=== PATIENT | female | born 1960 | race Caucasian/White ===

== ENCOUNTER 2018-06-06 08:18 | Inpatient (IN) | payer OTHER ==
[2018-05-02 13:36] VITALS: BMI 29.0
[2018-05-11 13:00] VITALS: BMI 29.0
--- NOTE | 2018-05-11 13:02 | PAT Medication Instructions ---
Service Date May 11, 2018. Current Home Medication List Albuterol Hfa (Ventolin Hfa), 2-4 PUFFS INH Q6H PRN for Shortness of Breath Albuterol Sulf (Proventil 0.083% 2.5MG/3ML), 2.5 MG INH QID PRN for Shortness of Breath Calcium Carbonate-Cholecalcife (Calcium 500 +D3 500-600 mg-Unit), 1 TAB PO BID Fluticasone Furoate-Vilanterol (Breo Ellipta 200-25 Mcg/INH), QAM Gabapentin (Neurontin), 800 MG PO TID Ibuprofen-Famotidine (Duexis), 1 TAB PO TID Ipratropium-Albuterol (Combivent Respimat), 1 PUFFS INH QID Levothyroxine Sodium (Synthroid), 50 MCG PO QAM Loratadine (Claritin), 10 MG PO QAM Lorazepam (Ativan), 0.5 MG PO TID PRN for Anxiety Omeprazole (Prilosec), 20 MG PO QAM Medication Instructions For Your Scheduled Surgery - Check with surgeon for instructions: Ibuprofen-Famotidine (Duexis), 1 TAB PO TID - Hold the following medications the morning of surgery: Loratadine (Claritin), 10 MG PO QAM Calcium Carbonate-Cholecalcife (Calcium 500 +D3 500-600 mg-Unit), 1 TAB PO BID - Take the following medications the morning of surgery with a sip of water: Albuterol Hfa (Ventolin Hfa), 2-4 PUFFS INH Q6H PRN for Shortness of Breath (if needed) Albuterol Sulf (Proventil 0.083% 2.5MG/3ML), 2.5 MG INH QID PRN for Shortness of Breath (if needed) Fluticasone Furoate-Vilanterol (Breo Ellipta 200-25 Mcg/INH), QAM Gabapentin (Neurontin), 800 MG PO TID Levothyroxine Sodium (Synthroid), 50 MCG PO QAM Ipratropium-Albuterol (Combivent Respimat), 1 PUFFS INH QID Lorazepam (Ativan), 0.5 MG PO TID PRN for Anxiety (if needed) Omeprazole (Prilosec), 20 MG PO QAM - Take the following medications as scheduled the night before surgery: Calcium Carbonate-Cholecalcife (Calcium 500 +D3 500-600 mg-Unit), 1 TAB PO BID Lorazepam (Ativan), 0.5 MG PO TID PRN for Anxiety (if needed) Ipratropium-Albuterol (Combivent Respimat), 1 PUFFS INH QID Gabapentin (Neurontin), 800 MG PO TID Albuterol Hfa (Ventolin Hfa), 2-4 PUFFS INH Q6H PRN for Shortness of Breath (if needed) Albuterol Sulf (Proventil 0.083% 2.5MG/3ML), 2.5 MG INH QID PRN for Shortness of Breath (if needed) If you have any questions please call us at [phone] or [phone] or [phone]
[~2018-06-06] VITALS: Ht 162.6 cm; Wt 77.5 kg
[2018-06-06] VITALS (7 sets, daily range): BP systolic 122–154; BP diastolic 72–80; PULSE 45–69; TEMP 36.4–36.6; O2SAT 91–97; Ht 162.6 cm; Wt 77.5 kg
[~2018-06-06 08:18] MED LIST: ACETAMINOPHEN 500 MG TAB PO SCH; ALBINS/ INH; CALC-485 PO; CEFAZOLIN 1000MG IV PUSH 7.5 ML IV SCH; CeleBREX 200 MG CAP PO SCH; FLUT1INH7; GABA800T PO; GABAPENTIN 600 MG PO SCH; IBUP1TAB51 PO; IPRA1AER2 INH; LACTATED RINGER'S 1000ML IV SCH; LEVO50TA PO; LORA-741 PO; LORA10CA2 PO; PRLSR20 PO; VNTHFA/IN INH
[2018-06-06] MEDS ORDERED: ATROPINE SULFATE 0.1 MG/ML 5ML SYR IV PRN (08:30)
[2018-06-06] MEDS ORDERED: MEPERIDINE HCL 25 MG/ML CARP IV PRN (08:30)
[2018-06-06] MEDS ORDERED: EpHEDrine SULFATE INJ 50 MG/ML AMP IV PRN (08:30)
[2018-06-06] MEDS ORDERED: NALOXONE HCL 0.4 MG/1 ML VIAL/CARP IV PRN ×2 (08:30→13:30)
[2018-06-06] MEDS ORDERED: FLUMAZENIL 0.1 MG/1 ML 10 ML VIAL IV PRN (08:30)
[2018-06-06] MEDS ORDERED: ONDANSETRON INJ 2 MG/ML 2 ML VIAL IV PRN ×2 (08:30→13:30)
[2018-06-06] MEDS ORDERED: LABETALOL HCL IV 5 MG/ML 20ML IV PRN (08:30)
[2018-06-06] MEDS ORDERED: PHENYLEPHRINE 100MCG/ML 5ML SYR IV PRN (08:30)
[2018-06-06] MEDS ORDERED: FENTANYL CITRATE INJ 50 MCG/1 ML 2 ML VIAL ONE ×4 (10:59→12:54)
[2018-06-06] MEDS ORDERED: MIDAZOLAM HCL 1 MG/ML 2ML VIAL ONE (10:59)
--- NOTE | 2018-06-06 11:21 | History & Physical Bridge Note ---
H&P Re-Evaluation Bridge Note: I have examined the patient, reviewed the History & Physical and in the interval since the performance of the History & Physical I have noted the following changes of clinical significance: No changes noted
--- NOTE | 2018-06-06 11:23 | History and Physical ---
History & Physical Date Jun 06, 2018. Chief Complaint Back and leg pain History of Present Illness The patient is a 58 year old female with complaints of back and leg pain Past Medical/Surgical History Medical Problems: (1) Cervical stenosis of spinal canal Additional History Hepatic Disease: No Endocrine Disorder: No Kidney Disease: No Hypertension: No Heart Disease: No Bleeding Tendencies: No Infectious Diseases: No Allergies Coded Allergies: No Known Allergies (Unverified , 05/02/18) Home Medications Scheduled Calcium Carbonate-Cholecalcife (Calcium 500 +D3 500-600 mg-Unit), 1 TAB PO BID Fluticasone Furoate-Vilanterol (Breo Ellipta 200-25 Mcg/INH), QAM Gabapentin (Neurontin), 800 MG PO TID Ibuprofen-Famotidine (Duexis), 1 TAB PO TID Ipratropium-Albuterol (Combivent Respimat), 1 PUFFS INH QID Levothyroxine Sodium (Synthroid), 50 MCG PO QAM Loratadine (Claritin), 10 MG PO QAM Omeprazole (Prilosec), 20 MG PO QAM Scheduled PRN Albuterol Hfa (Ventolin Hfa), 2-4 PUFFS INH Q6H PRN for Shortness of Breath Albuterol Sulf (Proventil 0.083% 2.5MG/3ML), 2.5 MG INH QID PRN for Shortness of Breath Lorazepam (Ativan), 0.5 MG PO TID PRN for Anxiety Physical Examination Skin: warm/dry, no rash Eyes: normal inspection, EOMI, sclerae normal ENT: normal ENT inspection, pharynx normal Head: normocephalic, atraumatic Neck: supple, no adenopathy, trachea midline Respiratory/Chest: lungs clear, normal breath sounds, no respiratory distress Cardiovascular: regular rate, rhythm, no edema, no murmur Abdomen / GI: normal bowel sounds, non tender Back: normal inspection Extremities: normal inspection, normal range of motion Neurologic/Psych: no motor/sensory deficits, alert, normal reflexes, oriented x 3 Diagnosis Lumbar spinal stenosis with neurogenic claudication Plan of Treatment L2-L3 decompression and fusion
[2018-06-06] MEDS ORDERED: HYDROmorphone INJ 2 MG/ML SYR/VIAL ONE ×2 (11:38→12:55)
[2018-06-06] MEDS ORDERED: BUPIVACAINE/EPINEPHRINE 0.5% MPF 1:200,000 30 ML VIAL ONE (11:46)
[2018-06-06] MEDS ORDERED: BACITRACIN 50000 UNIT VIAL ONE (11:46)
[2018-06-06] MEDS ORDERED: BUPIVACAINE LIPOSOME 1/3% 266 MG/20 ML VIAL ONE (11:47)
[2018-06-06] MEDS ORDERED: SODIUM CHLORIDE 0.9% PF 50 ML VIAL ONE (11:51)
[2018-06-06] MEDS ORDERED: BUPIVACAINE 0.5 % 5 MG/1 ML PF 10ML VIAL ONE (12:04)
[2018-06-06] MEDS ORDERED: ESMOLOL HCL 10 MG/ML 10 ML VIAL ONE (12:39)
[2018-06-06] MEDS ORDERED: PROPOFOL IV EMULSION 10 MG/ML 20 ML VIAL ONE (12:39)
[2018-06-06] MEDS ORDERED: ROCURONIUM BROMIDE 10 MG/ML 5 ML VIAL ONE (12:39)
[2018-06-06] MEDS ORDERED: ONDANSETRON INJ 2 MG/ML 2 ML VIAL ONE (12:39)
[2018-06-06] MEDS ORDERED: LIDOCAINE HCL 2% 2 ML VIAL (20MG/ML) ONE (12:39)
[2018-06-06] MEDS ORDERED: DEXAMETHASONE SOD INJ 4 MG/ML VIAL ONE (12:39)
[2018-06-06] MEDS ORDERED: GLYCOPYRROLATE INJ 0.2 MG/ML VIAL ONE (13:02)
[2018-06-06] MEDS ORDERED: FLOSEAL HEMOSTATIC MATRIX 10ML TOP ONE (13:15)
--- NOTE | 2018-06-06 13:22 | [facility] Operative Report ---
Operative Report Operative Date Jun 06, 2018. Pre-Operative Diagnosis Lumbar Spinal Stenosis with Neurogenic Claudication Post-Operative Diagnosis Lumbar Spinal Stenosis with Neurogenic Claudication Procedure(s) Performed 1. Lumbar decompression mucosectomy foraminotomies L2-3. #2 posterior spinal fusion L2-3. #3 placement posterior instrumentation L2-3. #4 interbody fusion L2-3. #5 placement of 10 x 22 mm titanium cage L2-3. #6 placement of local autograft in the posterior lateral gutters. #7 placement InFUSE collagen sponge Bymaster graft in the posterior gutters and ostial amp in the interbody space. Surgeon Dr. Sims Projects Manager Surgeon(s) Edie Adrian PA-C Estimated Blood Loss 100cc Findings Lumbar spinal stenosis with degenerative scoliosis Specimens None per surgeon Anesthesia Type General Description of Procedure Patient was met with preoperatively case discussed all questions addressed. After informed consent obtained patient was taken to the operative suite underwent admission placed in a prone position on the Arnol table on top of the Anthony frame. All bony prominences well-padded eyes inspected to ensure no external pressure placed upon the. This point the lumbar spine was prepped and draped in the normal sterile fashion. Sharp dissection with the assistance of Bovie cautery was then performed down to and exposing the lamina and transverse processes of L2 and L3. From a caudal to cephalad fashion complete laminectomy L2 is performed including medial facetectomies foraminotomies on the left addressing significant foraminal stenosis. Pedicle screws are then placed in L2 and L3 bilaterally with the assistance of fluoroscopy the purposes ella provisionally placed. Through a trans-foraminal approach and left complete discectomy was performed endplates created to subcortical bleeding bone and a 10 x 22 mm titanium cage with ostium bone graft tapped in position. Rods were then compressed locked into final position bilaterally. The transverse processes of L2 and L3 burred to subcortical bleeding bone. Infuse collagen sponge master graft local autograft placed in the posterior gutters. 15 round NAVEEN drain inserted. Approximately 100 cc of Exparel injected into the musculature. Incision closed with 1 Vicryl fascia 2-0 Vicryl subtends a full medical fashion closure Steri-Strips are displaced. Patient will continue PACU stable disc. Please note Edie Desai was present throughout the entire procedure ultimately for patient positioning complex portions of the surgery and fashion closure. I attest to the content of the Intraoperative Record and any orders documented therein. Any exceptions are noted below.
[2018-06-06] MEDS ORDERED: LORAZEPAM 0.5 MG TAB PO PRN ×2 (13:30)
[2018-06-06] MEDS ORDERED: ALUMINUM/MAGNESIUM SUSP 30 ML UDC PO PRN (13:30)
[2018-06-06] MEDS ORDERED: ACETAMINOPHEN IV 100 ML IV PRN (13:30)
[2018-06-06] MEDS ORDERED: hydrOXYzine HCL 25 MG TAB PO PRN (13:30)
[2018-06-06] MEDS ORDERED: BISACODYL 10 MG SUPP PR PRN (13:30)
[2018-06-06] MEDS ORDERED: DO NOT ADMINISTER FLU VACCINE PRN (13:30)
[2018-06-06] MEDS ORDERED: PROMETHAZINE HCL INJ 12.5 MG in SODIUM CHLORIDE 0.9% 50ML 50 ML IV PRN (13:30)
[2018-06-06] MEDS ORDERED: METOCLOPRAMIDE HCL INJ 5 MG/ML 2 ML VIAL IV PRN (13:30)
[2018-06-06] MEDS ORDERED: ACETAMINOPHEN 500 MG TAB PO PRN (13:30)
[2018-06-06] MEDS ORDERED: DO NOT ADMINISTER PNEUMOCOCCAL VACCINE PRN (13:30)
[2018-06-06] MEDS ORDERED: FAMOTIDINE 20 MG TAB PO PRN (13:30)
[2018-06-06] MEDS ORDERED: ALBUTEROL 0.083% NEBU SOLN 3 ML VIAL INH PRN (13:30)
[2018-06-06] MEDS ORDERED: MAGNESIUM HYDROXIDE SUSP 30 ML UDC PO PRN (13:30)
[2018-06-06] MEDS ORDERED: SOD PHOSPHATE/SOD BIPHOSPHATE ENEMA 132 ML BTL PR PRN (13:30)
[2018-06-06] MEDS ORDERED: LORAZEPAM INJ 0.5 MG in SYRINGE 0 ML IV PRN (13:30)
[2018-06-06] MEDS ORDERED: ALBUTEROL HFA 8 GM INHALER INH PRN (13:30)
--- NOTE | 2018-06-06 13:33 | DIAGNOSTIC IMAGING REPORT ---
LUMBAR SPINE, INTRAOPERATIVE FLUOROSCOPY HISTORY: L2-L3 decompression and fusion. FLUOROSCOPY TIME: 20 seconds. FINDINGS: Intraoperative fluoroscopy was provided for the lumbar spine. 2 fluoroscopic spot images were obtained. Posterior decompression fusion at L2-L3 with pedicle screws and rods. The hardware appears intact. IMPRESSION: Fluoroscopy provided for a L2-L3 posterior decompression and fusion. Electronically signed by: Edvin Segovia M.D. 06/06/2018 1:32 PM Dictated Date/Time: 06/06/2018 1:32 PM
[2018-06-06] MEDS: HYDROmorphone INJ 1 MG/ML SYR IV PRN ×5 (13:50→23:41)
[2018-06-06] MEDS: MoRPHine SULFATE 10 MG/ML CARP/VIAL IV PRN ×2 (14:34→14:47)
[2018-06-06] MEDS ORDERED: LORAZEPAM INJ 0.5 MG in SYRINGE 0.25 ML IV STA (14:45)
--- NOTE | 2018-06-06 15:11 | Anesthesiology Progress Note ---
Anesthesia Post Op Note Date & Time Jun 06, 2018 at 15:11 Vital Signs Pain Intensity: 2 Vital Signs Past 12 Hours Date Time Temp Pulse Resp B/P (MAP) Pulse Ox O2 Delivery O2 Flow Rate FiO2 06/06/18 14:55 36.8 48 12 143/83 97 Nasal Cannula 3 06/06/18 14:45 49 13 141/86 95 Nasal Cannula 3 06/06/18 14:35 55 13 157/82 96 Nasal Cannula 3 06/06/18 14:25 49 14 140/85 96 Nasal Cannula 3 06/06/18 14:15 50 12 146/84 98 Nasal Cannula 2 06/06/18 14:05 52 17 152/94 94 Nasal Cannula 2 06/06/18 13:55 54 21 150/98 99 Oxymask 10 06/06/18 13:45 57 17 155/83 100 Oxymask 10 06/06/18 13:39 36.2 73 16 145/98 99 Oxymask 10 06/06/18 08:37 36.6 66 20 141/72 Room Air Notes Mental Status: alert / awake / arousable, participated in evaluation Pt Amnestic to Procedure: Yes Nausea / Vomiting: adequately controlled Pain: adequately controlled, improving with treatment Airway Patency, RR, SpO2: stable & adequate BP & HR: stable & adequate Hydration State: stable & adequate Anesthetic Complications: no major complications apparent
[2018-06-06] MEDS: SODIUM CHLORIDE 0.9% 1000ML 1,000 ML IV SCH ×2 (16:00→21:24)
[2018-06-06] MEDS: IPRATROPIUM BROMIDE/ALBUTEROL respimat INH INH SCH ×2 (18:01→20:25)
[2018-06-06] MEDS: CEFAZOLIN IV 2,000 MG in SYRINGE 0 ML IV SCH (20:18)
[2018-06-06] MEDS: GABAPENTIN 800 MG TAB PO SCH (20:26)
[2018-06-06] MEDS: DOCUSATE SODIUM/SENNA 50/8.6MG TAB PO SCH (20:26)
[2018-06-07] VITALS (8 sets, daily range): BP systolic 105–124; BP diastolic 68–83; PULSE 55–85; TEMP 36.4–36.7; O2SAT 87–95
[2018-06-07] MEDS: SODIUM CHLORIDE 0.9% 1000ML 1,000 ML IV SCH (03:42)
[2018-06-07] MEDS: HYDROmorphone INJ 1 MG/ML SYR IV PRN (04:06)
[2018-06-07] MEDS: CEFAZOLIN IV 2,000 MG in SYRINGE 0 ML IV SCH (04:06)
[2018-06-07] MEDS ORDERED: NURSING VERBAL MED ORDER ONE (05:45)
[2018-06-07] MEDS: LEVOTHYROXINE 50 MCG TAB PO SCH (05:46)
[2018-06-07] MEDS ORDERED: HYDROmorphone INJ 0.5 MG/0.5 ML SYR IV PRN (06:00)
[2018-06-07 06:33] LABS: BASO % 0.1 %; BASO ABS # 0.01 K/uL (0-0.2); HEMATOCRIT 34.3 % (37-47); HEMOGLOBIN 11.3 g/dL (12.0-16.0); IG# 0.03 K/uL (0.00-0.02); LYMPH % 10.9 %; LYMPH ABS # 1.07 K/uL (1.2-3.4); MEAN CELL VOLUME 88.6 fL (80-100); MEAN CORPUSCULAR HEMOGLOBIN 29.2 pg (25-34); MEAN CORPUSCULAR HGB CONC 32.9 g/dl (32-36); MONO % 6.6 %; MONO ABS # 0.65 K/uL (0.11-0.59); NEUT % 82.1 %; NEUT ABS # 8.06 K/uL (1.4-6.5); PLATELET COUNT 241 K/uL (130-400); RED CELL DISTRIBUTION WIDTH CV 13.7 % (11.5-14.5); RED CELL DISTRIBUTION WIDTH SD 44.3 fL (36.4-46.3); WHITE BLOOD COUNT 9.82 K/uL (4.8-10.8)
[2018-06-07 07:03] LABS: CALCIUM 8.6 mg/dl (8.5-10.1); CREATININE 0.84 mg/dl (0.60-1.20); POTASSIUM 4.5 mmol/L (3.5-5.1)
[2018-06-07] MEDS: OXYCODONE HCL IR 5 MG TAB (IMMEDIATE RELEASE) PO PRN ×4 (07:32→20:59)
[2018-06-07] MEDS ORDERED: RXC5 PO (08:28)
--- NOTE | 2018-06-07 08:29 | Discharge Instructions ---
Discharge Instructions Date of Service Jun 07, 2018. Admission Reason for Admission: Lumbar Spinal Stenosis Discharge Discharge Diagnosis / Problem: lumbar stenosis Discharge Goals Goal(s): Improve function Activity Recommendations Activity Limitations: per Instructions/Follow-up section . Instructions / Follow-Up Instructions / Follow-Up ACTIVITY RECOMMENDATIONS: SELF CARE INSTRUCTIONS AFTER THORACIC/LUMBAR FUSIONS 1. You may walk to your tolerance. It is good exercise for your legs and back. Expect some back and intermittent leg aches and pains. 2. You may perform "counter-top" level activities (make a sandwich, hector with a project, etc.). 3. No bending or lifting of more than 10 pounds or back twisting of any nature (roll like a log when turning in bed). 4. You may ride in a car for 20-30 minutes at a time. No driving until after your first visit with your doctor. 5. Frequent changes of position and restricting sitting to 30 minutes at a time will help limit the amount of back spasms and stiffness you may experience. 6. You may discontinue the use of ambulatory aids (cane, crutches, etc.) once your strength and confidence allow. 7. You may senior ui software engineer the shower and let water strike your incision when you arrive home at least once daily. Do not take a tub bath, sit in a hot tub or go into a swimming pool until after your first recheck in the office. SPECIAL CARE INSTRUCTIONS: VERY IMPORTANT TO READ AND REVIEW A. Your surgical incision has been closed with a cosmetic suture under the skin that will dissolve in about 6 weeks. In 14 days, you can use a pair of clean scissors and cut the suture that is left outside of the skin at the ends of your incision. 1. The small skin tapes can be removed 7 days after surgery if they have not fallen off by that point. 2. You may keep the wound open to air as much as possible to promote healing after post-op day number 5 unless told otherwise by your doctor. 3. If you think the wound looks like it is becoming infected (redness or worsening drainage) and/or you are experiencing fever, chill or worsening back pain and muscle spasms, contact the office so that we may evaluate you as soon as possible. B. Complications are uncommon, but please contact us if you have any signs or symptoms of: 1. wound infection (fever higher than 102.5 degrees F, redness, separation of wound, drainage, or increasing pain from the incision) 2. blood clots in legs (pain, swelling, redness and warmth in legs) 3. urinary tract infection (fever higher than 102.5 degrees F, burning upon urination or increased frequency of urination) 4. nerve problems (inability to walk on your toes or heels, numbness, loss of bowel or bladder control) 5. any other symptoms that concern you C. Please call the office at if you have any concerns or questions about your operation or recovery. D. No smoking! Smoking drastically decreases the chance of a solid fusion. E. Do not take any anti-inflammatory medications (Indocin, Advil, Motrin, Aspirin, Naprosyn, etc.) as these may inhibit the chance of a solid fusion. Tylenol is okay to take for pain. MANAGING PAIN AFTER SPINAL SURGERY 1. Narcotic medication is intended for short-term use and will be provided for surgical pain. Surgical pain usually lasts for a period of 4-6 weeks. Narcotic medication includes Percocet, Vicodin, Darvocet, Tylenol #3 or Lortab. 2. Longer-term pain is more appropriately treated with non-narcotic medication such as Tylenol ES. 3. Muscle spasm is not appropriately treated with narcotics. Muscle relaxers such as Soma, Flexeril or Skelaxin can be used along with Tylenol ES. 4. Remember that we all live with some "aches and pains". This is not unusual or uncommon after an injury or as we get older. a. Back pain is expected and may include muscle spasms for 4 to 6 weeks after surgery. The pain should gradually improve. If the pain worsens for no apparent reason, please contact the office. b. Intermittent leg pain may also be experienced and should not be concerned about unless it worsens for no apparent reason. If so, please contact the office. 5. We will provide appropriate medication within the normal guidelines of their prescribed use. We will also be very cautious and aware of potential abuse and extended duration of patients' medication needs. a. Pain medications are for your comfort and to assist with sleep and rest so that the tissue can heal. They are not provided in order to return to normal activity and should not be used through the day. To do so or worsening pain at night can result from ongoing tissue damage and development of tolerance to the prescribed medicine. 6. Please allow 2-3 days to process refills. Prescriptions will not be mailed but must be picked up at the office. FOLLOW UP VISIT: Keep your scheduled follow-up appointment. Any questions, please call the office at . Current Hospital Diet Patient's current hospital diet: Regular Diet Discharge Diet Recommended Diet: Regular Diet Procedures Procedures Performed: 1. Lumbar decompression mucosectomy foraminotomies L2-3. #2 posterior spinal fusion L2-3. #3 placement posterior instrumentation L2-3. #4 interbody fusion L2-3. #5 placement of 10 x 22 mm titanium cage L2-3. #6 placement of local autograft in the posterior lateral gutters. #7 placement InFUSE collagen sponge Bymaster graft in the posterior gutters and ostial amp in the interbody space. Pending Studies Studies pending at discharge: no Medical Emergencies . Who to Call and When: Medical Emergencies: If at any time you feel your situation is an emergency, please call 911 immediately. . Non-Emergent Contact Non-Emergency issues call your: Primary Care Provider . "Provider Documentation" section prepared by Shree Sims. .
[2018-06-07] MEDS ORDERED: KETOROLAC TROMETHAMINE 30 MG/ML VIAL IV PRN (08:30)
--- NOTE | 2018-06-07 08:37 | Progress Note ---
Progress Note Date of Service Jun 07, 2018. Progress Note Patient's back pain is controlled leg symptoms are improved. Vital signs are stable. On exam she is in the chair at the bedside is good strength testing appears comfortable. Assessment status post lumbar decompression fusion per plan at this time will continue physical therapy today anticipate possible home Wednesday or .
[2018-06-07] MEDS: LORATADINE 10 MG TAB PO SCH (09:10)
[2018-06-07] MEDS: PANTOprazole SOD 40 MG TAB PO SCH (09:10)
[2018-06-07] MEDS: GABAPENTIN 800 MG TAB PO SCH ×3 (09:10→20:59)
[2018-06-07] MEDS: IPRATROPIUM BROMIDE/ALBUTEROL respimat INH INH SCH ×4 (09:12→20:55)
[2018-06-07] MEDS: DOCUSATE SODIUM/SENNA 50/8.6MG TAB PO SCH (20:59)
[2018-06-08] MEDS: OXYCODONE HCL IR 5 MG TAB (IMMEDIATE RELEASE) PO PRN ×5 (00:39→18:23)
[2018-06-08] MEDS: LEVOTHYROXINE 50 MCG TAB PO SCH (05:56)
[2018-06-08] MEDS: POLYETHYLENE (MIRALAX) 17 GM PACK PO SCH ×3 (05:57→18:00)
[2018-06-08 07:05] VITALS: BP 116/74; PULSE 72; TEMP 36.6; O2SAT 94
[2018-06-08] MEDS: IPRATROPIUM BROMIDE/ALBUTEROL respimat INH INH SCH ×3 (08:18→18:20)
[2018-06-08] MEDS: LORATADINE 10 MG TAB PO SCH (08:18)
[2018-06-08] MEDS: GABAPENTIN 800 MG TAB PO SCH ×2 (08:18→14:19)
[2018-06-08] MEDS: PANTOprazole SOD 40 MG TAB PO SCH (08:19)
[2018-06-08 09:00] VITALS: BP 116/74; PULSE 72; TEMP 36.6; O2SAT 94
[2018-06-08 15:25] VITALS: BP 131/82; PULSE 89; TEMP 37.5; O2SAT 91
--- NOTE | 2018-06-08 15:35 | Discharge Summary ---
Orthopedic Discharge Summary Admission Date/Reason Jun 06, 2018 at 13:26 Lumbar Spinal Stenosis. Discharge Date/Disposition Jun 08, 2018 Home Diagnosis Principal Diagnosis: Lumbar spinal stenosis Admission Physical Exam As per Admitting History & Physical. Hospital Course Patient underwent lumbar decompression fusion tolerated as well as taken with orthopedic for postoperative. Postop day #1 she was up and amatory progressed nicely through postop day #2. NAVEEN drain decreased appropriately. Pain well controlled. Subsequently discharged home. Discharge orders and instructions can be found in the chart for further review. Discharge Instructions Please refer to the electronic Patient Visit Report (Discharge Instructions) for additional information.
== END 2018-06-08 19:26 | disposition home or self-care (01) | DRG 455 ==
LOC: C.ACU 08:18 → C.3E 13:26 → ENRESERV 14:15
PROVIDERS: ADMIT Orthopaedic Surgery Orthopaedic Surgery of the Spine; ATTEND Orthopaedic Surgery Orthopaedic Surgery of the Spine
PROC: 0SG0071 Fusion of Lumbar Vertebral Joint with Autologous Tissue Substitute, Posterior Approach, Posterior Column, Open Approach (ICD-10-PCS; principal; 2018-06-06 10:45)
PROC: 0ST20ZZ Resection of Lumbar Vertebral Disc, Open Approach (ICD-10-PCS; principal; 2018-06-06 10:45)
PROC: 0SG00AJ Fusion of Lumbar Vertebral Joint with Interbody Fusion Device, Posterior Approach, Anterior Column, Open Approach (ICD-10-PCS; principal; 2018-06-06 10:45)
PROC: 3E0U0GB Introduction of Recombinant Bone Morphogenetic Protein into Joints, Open Approach (ICD-10-PCS; principal; 2018-06-06 10:45)
DX: M48.062 Spinal stenosis, lumbar region with neurogenic claudication (principal)